=== PATIENT | female | born 1940 | race Caucasian/White ===

== ENCOUNTER → 2016-10-14 | Outpatient (CLI) | payer OTHER | LOC: MOB LAB 14:37 | PROVIDERS: ATTEND Family Medicine | DX: R30.0 Dysuria (principal) | CPT/HCPCS: 81002; 87088; 99214; J3420 ==

== ENCOUNTER → 2016-10-15 | Outpatient (CLI) | payer OTHER ==
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
[2016-10-16 13:38] LABS: SS-A/RO ANTIBODY IGG <0.2 U (()); SS-B/LA ANTIBODY IGG 0.2 U (())
== END ==
LOC: MOB LAB 09:34
PROVIDERS: ATTEND Family Medicine
DX: H04.123 Dry eye syndrome of bilateral lacrimal glands (principal); R53.83 Other fatigue; R07.89 Other chest pain; W00.0XXA Fall on same level due to ice and snow, initial encounter; Y92.481 Parking lot as the place of occurrence of the external cause
CPT/HCPCS: 12041; 36415; 71101; 85652; 86235; 90715; 99213

== ENCOUNTER → 2016-10-17 | Outpatient (CLI) | payer OTHER | LOC: MMPC 09:00 | PROVIDERS: ATTEND Family Medicine | DX: Z51.89 Encounter for other specified aftercare (principal); S20.212D Contusion of left front wall of thorax, subsequent encounter; W18.09XA Striking against other object with subsequent fall, initial encounter | CPT/HCPCS: 99213; G0463 ==

== ENCOUNTER → 2016-11-22 | Outpatient (CLI) | payer OTHER ==
--- NOTE | 2016-11-22 13:30 | EKG ---
[address] [address] Measurements Intervals [place] Rate: 54 P: 73 GA: 195 QRS: 70 QRSD: 93 T: 61 QT: 437 QTc: 424 Interpretive Statements SINUS BRADYCARDIA Compared to ECG 09/17/2016 15:41:35 T-wave abnormality no longer present Electronically Signed On 11-22-16 16:09:06 [facility] by Tristin Ortez [id number]
== END ==
LOC: EKG 09:00
PROVIDERS: ATTEND Family Medicine
DX: M25.562 Pain in left knee (principal); E78.00 Pure hypercholesterolemia, unspecified; R00.1 Bradycardia, unspecified
CPT/HCPCS: 93005; 93010

== ENCOUNTER → 2016-11-22 | Outpatient (CLI) | payer OTHER ==
[2016-11-22 13:03] LABS: HEMATOCRIT 41.5 % (37.0-47.0); HEMOGLOBIN 13.9 g/dL (12.0-16.0); MEAN CORPUSCULAR HEMOGLOBIN 31.8 PG (27-31); MEAN CORPUSCULAR HGB CONC 33.5 g/dL (33-37); MEAN PLATELET VOLUME 9.6 FL (7.4-12.2); RDW COEFFICIENT OF VARIATION 13.6 % (11.5-14.5); RED BLOOD COUNT 4.37 10^6/uL (4.20-5.40); WHITE BLOOD COUNT 5.26 10^3/uL (4.8-10.8)
[2016-11-22 13:35] LABS: BILIRUBIN,TOTAL 0.6 mg/dL (0.3-1.2); BUN/CREATININE RATIO 38.33 (6-20); CALCIUM 9.6 mg/dL (8.7-10.7); CREATININE 0.6 mg/dL (0.50-1.20); POTASSIUM 3.9 meq/L (3.8-5.2); TOTAL PROTEIN 7.2 g/dL (6.1-8.0)
[2016-11-22 13:36] LABS: BILIRUBIN,URINE NEGATIVE (NEG); CLARITY,URINE CLEAR (CLEAR); GLUCOSE, URINE (UA) NEGATIVE (NEG); LEUKOCYTE ESTERASE ,URINE NEGATIVE (NEG); NITRATE,URINE NEGATIVE (NEG); OCCULT BLOOD,URINE NEGATIVE (NEG); PH,URINE 6.5 (5.0-8.5); PROTEIN,URINE NEGATIVE (NEG); UROBILINOGEN,URINE 0.2 mg/dL (0.2)
[2016-11-22 13:50] LABS: URINE SAMPLE TYPE CLEAN CATCH URINE
[2016-11-22 13:51] LABS: RENAL EPITHELIAL CELLS,URINE RARE; SQUAMOUS EPITHELIAL CELL,UR RARE; WBC,URINE 0-3
== END ==
LOC: LAB 12:37
PROVIDERS: ATTEND Family Medicine
DX: M25.562 Pain in left knee (principal); E53.8 Deficiency of other specified B group vitamins
CPT/HCPCS: 36415; 80053; 81001; 85027; 86850; 86900; 86901; 87641; 99213; G0463; J3420

== ENCOUNTER → 2016-12-16 | Outpatient (CLI) | payer OTHER ==
--- NOTE | 2016-12-16 12:09 | DI ---
VENOUS DOPPLER ULTRASOUND OF THE LEFT LOWER EXTREMITY, 12/16/2016 11:03 AM: Clinical History: Left leg pain. Previous Exam: None. Technique: 2D real-time imaging is supplemented with color Doppler ultrasound. Compression and augmen tation maneuvers were performed. The deep venous system from the groin to the popliteal fossa is norm al. The greater saphenous vein is normal. Reading: Negative venous Doppler ultrasound of the left lower extremity.
== END ==
LOC: US 10:59
PROVIDERS: ATTEND Orthopaedic Surgery
DX: M79.605 Pain in left leg (principal)
CPT/HCPCS: 93971

== ENCOUNTER → 2016-12-20 | Outpatient (CLI) | payer OTHER | LOC: MMPC 09:00 | PROVIDERS: ATTEND Family Medicine | DX: E53.8 Deficiency of other specified B group vitamins (principal); E55.9 Vitamin D deficiency, unspecified | CPT/HCPCS: 99212; G0463; J3420 ==

== ENCOUNTER → 2017-02-11 | Outpatient (CLI) | payer OTHER | LOC: MMPC 10:00 | PROVIDERS: ATTEND Specialist | DX: R03.0 Elevated blood-pressure reading, without diagnosis of hypertension (principal); I48.0 Paroxysmal atrial fibrillation; Z96.652 Presence of left artificial knee joint | CPT/HCPCS: 99213; G0463 ==

== ENCOUNTER → 2017-03-10 | Outpatient (CLI) | payer OTHER | LOC: MOB LAB 15:17 | PROVIDERS: ATTEND Family Medicine | DX: R30.0 Dysuria (principal); M54.6 Pain in thoracic spine; R10.84 Generalized abdominal pain; I10 Essential (primary) hypertension; E53.8 Deficiency of other specified B group vitamins; R82.99 Other abnormal findings in urine | CPT/HCPCS: 81002; 87077; 87088; 87186 ×2; 99214; G0463; J3420 ==

== ENCOUNTER → 2017-04-09 | Outpatient (CLI) | payer OTHER ==
[2017-04-09 15:53] LABS: BASOPHILS # (AUTO) 0.02 10*3/UL; BASOPHILS % (AUTO) 0.4 % (0-1); EOSINOPHILS # (AUTO) 0.16 10*3/UL; EOSINOPHILS % (AUTO) 2.9 % (0-8); HEMATOCRIT 41.9 % (37.0-47.0); HEMOGLOBIN 13.7 g/dL (12.0-16.0); LYMPHOCYTES # (AUTO) 0.89 10*3/uL; MEAN CORPUSCULAR HEMOGLOBIN 30.2 PG (27-31); MEAN CORPUSCULAR HGB CONC 32.7 g/dL (33-37); MEAN CORPUSCULAR VOLUME 92.5 FL (81-99); MONOCYTES # (AUTO) 0.51 10*3/UL (0.3-0.8); MONOCYTES % (AUTO) 9.3 % (5-15); NEUTROPHILS # (AUTO) 3.93 10*3/UL; NEUTROPHILS % (AUTO) 71.2 % (50-80); RED BLOOD COUNT 4.53 10^6/uL (4.20-5.40)
[2017-04-09 15:57] LABS: PLATELET MORPHOLOGY COMMENT NORMAL MORPHOLOGY (NORM); RBC MORPHOLOGY COMMENT NORMAL MORPHOLOGY (NORM); WBC MORPHOLOGY COMMENT NORMAL MORPHOLOGY (NORM)
[2017-04-09 16:05] LABS: CALCIUM 9.6 mg/dL (8.7-10.7); CHOL/HDL RATIO 3.05 RATIO (0-4.0); LDL CHOLESTEROL,CALCULATED 120.2 mg/dL; MAGNESIUM 1.7 mg/dL (1.6-2.4); SERUM ALBUMIN 4.2 g/dL (3.5-4.8)
[2017-04-09 16:14] LABS: HEMOGLOBIN A1C 5.52 % (4.2-6.0)
[2017-04-09 16:19] LABS: FREE T4 (FREE THYROXINE) 1.01 ng/dL (0.93-1.71)
== END ==
LOC: MOB LAB 14:08
PROVIDERS: ATTEND Family Medicine
DX: I10 Essential (primary) hypertension (principal); E55.9 Vitamin D deficiency, unspecified; E78.00 Pure hypercholesterolemia, unspecified; K21.9 Gastro-esophageal reflux disease without esophagitis; R53.83 Other fatigue; R41.3 Other amnesia; R60.9 Edema, unspecified; R94.6 Abnormal results of thyroid function studies; R30.0 Dysuria; R82.99 Other abnormal findings in urine; Z23 Encounter for immunization
CPT/HCPCS: 36415; 80053; 80061; 81002; 82306; 83036; 83735; 84439; 84443; 84480; 84550; 85025; 87088; 90715; 99214; G0463

== ENCOUNTER 2017-10-27 15:53 | Inpatient (IN) ==
[2017-10-27] MEDS ORDERED: ONDANSETRON 4 MG/2 ML VIAL IVP ONE (16:11)
[2017-10-27] MEDS ORDERED: Sodium Chloride 0.9% 1,000 ML PRIMARY IV ONE (16:11)
[2017-10-27] MEDS ORDERED: MECLIZINE 25 MG CHEWABLE TABLET PO ONE (16:11)
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
[2017-10-27 16:14] LABS: BASOPHILS # (AUTO) 0.02 10*3/UL; BASOPHILS % (AUTO) 0.3 % (0-1); EOSINOPHILS % (AUTO) 2.7 % (0-8); Hematocrit [HCT] 42.6 % (37.0-47.0); Hemoglobin [HGB] 14.5 g/dL (12.0-16.0); LYMPHOCYTES # (AUTO) 1.17 10*3/uL; MEAN CORPUSCULAR HEMOGLOBIN 32.4 PG (27-31); MEAN CORPUSCULAR VOLUME 95.1 FL (81-99); MEAN PLATELET VOLUME 9.8 FL (7.4-12.2); MONOCYTES # (AUTO) 0.64 10*3/UL (0.3-0.8); MONOCYTES % (AUTO) 8.7 % (5-15); NEUTROPHILS # (AUTO) 5.27 10*3/UL; RED BLOOD COUNT 4.48 10^6/uL (4.20-5.40)
[2017-10-27 16:23] LABS: PLATELET MORPHOLOGY COMMENT NORMAL MORPHOLOGY (NORM); RBC MORPHOLOGY COMMENT NORMAL MORPHOLOGY (NORM); WBC MORPHOLOGY COMMENT NORMAL MORPHOLOGY (NORM)
[2017-10-27 16:24] LABS: CLARITY,URINE CLEAR (CLEAR); COLOR,URINE YELLOW (Y); PH,URINE 5.5 (5.0-8.5); PROTEIN,URINE NEGATIVE (NEG); URINE SAMPLE TYPE VOIDED SPECIMEN
[2017-10-27 16:25] LABS: BILIRUBIN,URINE NEGATIVE (NEG); GLUCOSE, URINE (UA) NEGATIVE (NEG); OCCULT BLOOD,URINE TRACE (NEG); UROBILINOGEN,URINE 0.2 EU/dL (0.2)
[2017-10-27 16:26] LABS: BLOOD UREA NITROGEN 22 mg/dL (7-22); BUN/CREATININE RATIO 36.66 (6-20); RBC,URINE 0 /hpf; SERUM ALBUMIN 4.2 g/dL (3.5-4.8); SQUAMOUS EPITHELIAL CELL,UR MODERATE; WBC,URINE 0-2
--- NOTE | 2017-10-27 16:44 | DI ---
MRI Brain WO Contrast,10/27/2017 4:11 PM: Clinical History: Left-sided weakness Previous Exam: None at this facility. Findings: Multiplanar MR images are obtained through the brain without contrast, and demonstrate diffuse age-re lated volume loss. There are multiple scattered areas of increased FLAIR and T2 signal throughout the periventricular and subcortical white matter. Intraorbital structures and paranasal sinuses are unremarkable as well. There is an area of curvilinear restricted diffusion in the right periventricular white matter just a spring the thalamus extending into the right internal capsule. There is no hemorrhage or midline shift. Midline structures are unremarkable. There is no evidence of Chiari malformation. The sella and parasellar region is unremarkable. Visualized portions of the cli vus and the upper cervical spine are also unremarkable. Impression: 1. Ischemia involving the right periventricular white matter just superior to the thalamus with porti ons extending into the right posterior limb of the internal capsule. 2. Diffuse age-related volume loss and multiple areas of small vessel ischemic change.
--- NOTE | 2017-10-27 17:54 | EKG ---
[address] [address] Measurements Intervals [place] Rate: 62 P: 76 [place]: 198 QRS: 80 QRSD: 89 T: 48 QT: 422 QTc: 427 Interpretive Statements SINUS RHYTHM MODERATE ST DEPRESSION [0.05+ mV ST DEPRESSION] Compared to ECG 06/24/2017 14:43:09 No significant changes Electronically Signed On 10-28-17 08:20:39 [facility] by Bulmaro Funez MD [id number]
[2017-10-27] MEDS ORDERED: ESTRADIOL VAGINAL VAGINAL SCH (19:22)
[2017-10-27] MEDS ORDERED: LIDOCAINE W/ SODIUM BICARB 0.5 ML SYR SUBD PRN (19:22)
[2017-10-27] MEDS ORDERED: NORMAL SALINE 10 ML SYRINGE FLUSH IVP PRN (19:22)
--- NOTE | 2017-10-27 21:10 | PDOC ---
HPI - History of Present Illness Date of Service: 10/27/17 Time of Service: 21:05 Chief Complaint: Left leg weakness History of Present Illness: This very pleasant 77-year-old female with underlying history of stable coronary artery disease, hypertension, and hypercholesterolemia, as well as paroxysmal atrial fibrillation, who presents with complaints of left leg weakness. Overall it has gotten better from when it initially started on either Friday morning or Friday morning. Apparently, prior to the leg feeling weak, the patient felt dizzy and lightheaded and her blood pressure was in the 90s systolic. It is not clear, but the patient may have doubled up on her blood pressure medications and taken an x-ray dose accidentally. She states that the symptoms of dizziness and lightheadedness are gone, she never had any chest pain, she's not had any fever or chills. She's never had a stroke before. The left leg weakness persisted and she came in for evaluation today and an MRI scan showed a right sided stroke. It was in the thalamus is an internal capsule region. I spoke with neurology in [place], to review what could potentially be the mechanism in case this could be an in situ versus embolic stroke, and it was their feeling that most likely this was a teacher fibrillation related, but recommendations were for continued evaluation of the carotid artery which we have planned for tomorrow. The patient was on a baby aspirin prior to the hospital stay. She's been on Coumadin in the past but is very erratic in terms of controlling very difficult that [place], [place]. There were no other exacerbating factors. She does not smoke. She does not have diabetes. She has had 6 weeks of left upper extremity weakness that she attributed to arthritis, but that did not seem to be any worse with her leg weakness. Past Medical History Medical History: 1. Coronary artery disease, a symptomatically. 2. Hypertension. 3. Hypercholesterolemia. 4. Paroxysmal atrial fibrillation. 5. Osteoarthritis Surgical History: 1. Cholecystectomy. 2. Bilateral hip surgeries. 3. Left total knee replacement. 4. Tonsillectomy and adenoidectomy. 5. Appendectomy Pertinent Family History: Significant for hypercholesterolemia in her mother. But her mother of old age at 91 Past Social History: Does not smoke or drink. . Has 2 children described as healthy. Lives on [place] ranch outside of [place], [place]. Tobacco Use: Never Smoker In the Past 12 Months, Have Used or Abuse Any of the Following Substance: None Alcohol Use: None Medication / Allergies Home Medications: Home Medications Medication Instructions Recorded Confirmed Type Calcium Carbonate/Vitamin D3 1 ea PO PRN 04/18/11 10/27/17 History [Caltrate 600 W-D Tablet] Sotalol HCl [Sotalol] 80 mg ORAL BID tab 04/18/11 10/27/17 History [place]-3 Fatty Acids [Fish Oil] 500 mg PO DAILY 05/26/11 10/27/17 History Psyllium Husk (with Sugar) 798 gm PO DAILY 05/26/11 10/27/17 History [Metamucil Powder] Cyclosporine [Restasis] 1 drp OP BID #1 drp 12/23/12 10/27/17 History Latanoprost [Xalatan] 1 drp OP DAILY #1 drp 12/23/12 10/27/17 History Cyanocobalamin Inj [Vitamin B-12 1,000 mcg IM MONTHLY #1 vial 02/22/14 10/27/17 History Inj] Cholecalciferol (Vitamin D3) 2,000 unit PO QD #90 cap 01/31/15 10/27/17 History [Vitamin D3] Estradiol Vaginal Cream 0.01% 1 applic VAGINAL ASDIR #1 tube 04/24/17 10/27/17 Rx [Estrace Vaginal Cream 0.01%] amlodipine 5 mg tablet 5 mg PO QDAY #90 tab 08/22/17 10/27/17 Rx mirtazapine 15 mg tablet 15 mg PO QHS 30 Days #30 tab 09/12/17 10/27/17 Rx ciprofloxacin 250 mg tablet 250 mg PO BID #10 tab 09/19/17 10/27/17 Rx Allergies/Adverse Reactions: Allergies 3 Allergy/AdvReac Type Severity Reaction Status Date / Time nitrofurantoin Allergy NOT Verified 10/27/17 20:05 macrocrystalline APPLICABLE [From Macrodantin] Sulfa (Sulfonamide AdvReac Severe GI upset Verified 10/27/17 20:05 Antibiotics) clindamycin HCl AdvReac nausea Verified 10/27/17 20:05 [From Cleocin] clindamycin palmitate HCl AdvReac nausea Verified 10/27/17 20:05 [From Cleocin] clindamycin phosphate AdvReac nausea Verified 10/27/17 20:05 [From Cleocin] novacaine AdvReac Intermediate Pt starts Uncoded 10/27/17 20:05 crying Review of Systems - Constitutional Constitutional: REPORTS: Fatigue (The fatigue has been present since at least the knee replacement back in November 2016) - Respiratory Respiratory: REPORTS: Negative System Review - Cardiovascular Cardiovascular: REPORTS: Negative System Review - Gastrointestinal Gastrointestinal / Abdominal: REPORTS: Negative System Review - Genitourinary Genitourinary: REPORTS: Other (Gets frequent urinary tract infections) - Musculoskeletal Musculoskeletal: REPORTS: Other (Osteo-Arthritis, left thumb, shoulder region on the left) - Neurological Neurologic: REPORTS: See HPI - Psychiatric Psychiatric: REPORTS: Negative System Review Exam - Vitals Vital Signs: Vital Signs Temperature 97.8 F Temperature Source Temporal Artery Scan Pulse Rate 62 Respiratory Rate 18 Blood Pressure 126/73 Pulse Ox 96 Height 5 ft 5 in Weight 130 lb - General General Appearance: No Acute Distress, Cooperative - Head Head Exam: Normal Inspection, Normocephalic, Atraumatic - Eye Eye Exam: POSITIVE: No Scleral Icterus - ENT ENT Exam: POSITIVE: Mucous Membranes Moist - Neck Neck Exam: Normal Inspection, No Tenderness, No Lymphadenopathy, No Thyromegaly - Respiratory Respiratory Exam: POSITIVE: Clear to Auscultation - Bilaterally, Breathing Non Labored, Normal to Percussion and Palpation - Cardiovascular Cardiovascular Exam: POSITIVE: RRR, No Murmur, No Clicks, No Gallops, No Rubs, No JVD Additional Cardiovascular Details: No carotid bruits - GI/Abdominal GI/Abdominal Exam: POSITIVE: Normal Bowel Sounds, Non Tender, Non Distended, Soft - Rectal Rectal Exam: POSITIVE: Deferred - External Exam: POSITIVE: Deferred Exam: POSITIVE: Deferred - Extremities Extremities Exam: POSITIVE: No Clubbing Present, No Edema Present, No Cyanosis Present - Back Back Exam: POSITIVE: No CVA Tenderness - Neurological Neurological Exam: POSITIVE: Alert, Oriented x 3, No Facial Droop, Speech Intact / Clear Additional Neurological Exam Details: Slight weakness in the left lower extremity. Smile is symmetric. Speech is intact and clear. - Psychiatric Psychiatric Exam: POSITIVE: Normal Affect, Normal Mood Results - Labs CBC and BMP: 10/27/17 16:11 10/27/17 16:11 Additional Lab Results: Laboratory Results 10/27/17 10/27/17 10/27/17 Range/Units 16:11 16:11 16:11 WBC 7.32 (4.8-10.8) 10^3/uL RBC 4.48 (4.20-5.40) 10^6/uL Hgb 14.5 (12.0-16.0) g/dL Hct 42.6 (37.0-47.0) % MCV 95.1 (81-99) FL MCH 32.4 H (27-31) PG MCHC 34.0 (33-37) g/dL RDW Std Deviation 47.0 (39-50) fL RDW Coeff of Greg 13.9 (11.5-14.5) % Plt Count 199 (140-350) 10*3/uL MPV 9.8 (7.4-12.2) FL Immature Gran % (Auto) 0.3 (0-5) % Neut % (Auto) 72.0 (50-80) % Lymph % (Auto) 16.0 (10-50) % [place] % (Auto) 8.7 (5-15) % Eos % (Auto) 2.7 (0-8) % Baso % (Auto) 0.3 (0-1) % Immature Gran # (Auto) 0.02 10*3/UL Neut # (Auto) 5.27 10*3/UL Lymph # (Auto) 1.17 10*3/uL [place] # (Auto) 0.64 (0.3-0.8) 10*3/UL Eos # (Auto) 0.20 10*3/UL Baso # (Auto) 0.02 10*3/UL WBC Morphology Comment Normal morphology (NORM) Plt Morphology Comment Normal morphology (NORM) RBC Morph Comment Normal morphology (NORM) PT 11.1 (9.7-11.4) secs INR 1.05 (0.00-5.90) N/A Sodium (135-145) meq/L Potassium (3.8-5.2) meq/L Chloride (98-112) meq/L Carbon Dioxide (23-33) meq/L Anion Gap (5-20) BUN (7-22) mg/dL Creatinine (0.50-1.20) mg/dL BUN/Creatinine Ratio (6-20) Glucose (78-110) mg/dL Calculated Osmolality (267-292) mOsm/kg Calcium (8.7-10.7) mg/dL Total Bilirubin (0.3-1.2) mg/dL AST (8-39) IU/L ALT (9-52) IU/L Alkaline Phosphatase (38-126) IU/L C-Reactive Protein (0.0-0.9) mg/dL Total Protein (6.1-8.0) g/dL Albumin (3.5-4.8) g/dL Globulin (2.50-4.10) g/dL Albumin/Globulin Ratio (1.3-2.0) mg/g TSH (0.2700-4.2000) uIU/mL Ur Collection Type Voided specimen Urine Color Yellow (Y) Urine Clarity Clear (CLEAR) Urine pH 5.5 (5.0-8.5) Ur Specific [place] 1.025 (1.005-1.030) Urine Protein Negative (NEG) mg/dl Urine Glucose (UA) Negative (NEG) mg/dL Urine Ketones 15 (NEG) Urine Occult Blood Trace H (NEG) Urine Nitrate Negative (NEG) Urine Bilirubin Negative (NEG) Urine Urobilinogen 0.2 (0.2) EU/dL Ur Leukocyte Esterase Negative (NEG) Urine RBC 0 (NONE) /hpf Urine WBC 0-2 (NONE) Ur Squamous Epith Cells Moderate (NONE) Ur Renal Epithelial Cell None (NONE) Urine Crystals None Urine Bacteria None (NONE) Urine Casts None (NONE) Urine Mucus Many (NONE) Urine Trichomonas None (NONE) Urine Yeast None (NONE) Ur Culture Indicated? Culture not set 10/27/17 10/27/17 Range/Units 16:11 16:11 WBC (4.8-10.8) 10^3/uL RBC (4.20-5.40) 10^6/uL Hgb (12.0-16.0) g/dL Hct (37.0-47.0) % MCV (81-99) FL MCH (27-31) PG MCHC (33-37) g/dL RDW Std Deviation (39-50) fL RDW Coeff of Greg (11.5-14.5) % Plt Count (140-350) 10*3/uL MPV (7.4-12.2) FL Immature Gran % (Auto) (0-5) % Neut % (Auto) (50-80) % Lymph % (Auto) (10-50) % [place] % (Auto) (5-15) % Eos % (Auto) (0-8) % Baso % (Auto) (0-1) % Immature Gran # (Auto) 10*3/UL Neut # (Auto) 10*3/UL Lymph # (Auto) 10*3/uL [place] # (Auto) (0.3-0.8) 10*3/UL Eos # (Auto) 10*3/UL Baso # (Auto) 10*3/UL WBC Morphology Comment (NORM) Plt Morphology Comment (NORM) RBC Morph Comment (NORM) PT (9.7-11.4) secs INR (0.00-5.90) N/A Sodium 141 (135-145) meq/L Potassium 4.2 (3.8-5.2) meq/L Chloride 105 (98-112) meq/L Carbon Dioxide 23 (23-33) meq/L Anion Gap 13 (5-20) BUN 22 (7-22) mg/dL Creatinine 0.6 (0.50-1.20) mg/dL BUN/Creatinine Ratio 36.66 H (6-20) Glucose 154 H (78-110) mg/dL Calculated Osmolality 297.0 H (267-292) mOsm/kg Calcium 10.0 (8.7-10.7) mg/dL Total Bilirubin 0.9 (0.3-1.2) mg/dL AST 31 (8-39) IU/L ALT 29 (9-52) IU/L Alkaline Phosphatase 57 (38-126) IU/L C-Reactive Protein 0.6 (0.0-0.9) mg/dL Total Protein 7.6 (6.1-8.0) g/dL Albumin 4.2 (3.5-4.8) g/dL Globulin 3.3 (2.50-4.10) g/dL Albumin/Globulin Ratio 1.20 L (1.3-2.0) mg/g TSH 1.09 (0.2700-4.2000) uIU/mL Ur Collection Type Urine Color (Y) Urine Clarity (CLEAR) Urine pH (5.0-8.5) Ur Specific [place] (1.005-1.030) Urine Protein (NEG) mg/dl Urine Glucose (UA) (NEG) mg/dL Urine Ketones (NEG) Urine Occult Blood (NEG) Urine Nitrate (NEG) Urine Bilirubin (NEG) Urine Urobilinogen (0.2) EU/dL Ur Leukocyte Esterase (NEG) Urine RBC (NONE) /hpf Urine WBC (NONE) Ur Squamous Epith Cells (NONE) Ur Renal Epithelial Cell (NONE) Urine Crystals Urine Bacteria (NONE) Urine Casts (NONE) Urine Mucus (NONE) Urine Trichomonas (NONE) Urine Yeast (NONE) Ur Culture Indicated? - EKG Data -: EKG Interpreted by Me Rate: Normal EKG Shows Normal: Sinus Rhythm - Imaging Status: Report Reviewed by Me (I reviewed the MRI report from the radiologist.) Assessment and Plan - Patient Problems (1) Acute embolic stroke Current Visit: Yes Status: Acute Code(s): I63.9 - Cerebral infarction, unspecified (2) Paroxysmal atrial fibrillation Current Visit: Yes Status: Acute Code(s): I48.0 - Paroxysmal atrial fibrillation (3) Hypertension Current Visit: Yes Status: Acute Code(s): I10 - Essential (primary) hypertension Qualifiers: Hypertension type: essential hypertension Qualified Code(s): I10 - Essential (primary) hypertension (4) Coronary artery disease Current Visit: Yes Status: Acute Code(s): I25.10 - Atherosclerotic heart disease of [place] coronary artery without angina pectoris Qualifiers: Coronary Disease-Associated Artery/Lesion type: [place] artery [place] vs. transplanted heart: [place] heart Associated angina: without angina Qualified Code(s): I25.10 - Atherosclerotic heart disease of [place] coronary artery without angina pectoris (5) Hypercholesterolemia Current Visit: Yes Status: Acute Code(s): E78.00 - Pure hypercholesterolemia , unspecified - Assessment / Plan Additional Assessment/Plan Details: Given the location of the stroke on MRI scan, I push the films up to [place], and spoke with the neurologist there to discuss whether this could be embolic or in situ ischemia or ischemia from a carotid artery. Overall, it was recommended and suggested that it was most likely embolic from atrial fibrillation. It did not appear consistent with watershed stroke. The recommendation was to do anticoagulation and continue on aspirin. The patient and I spoke in depth regarding Coumadin versus Xarelto versus Eliquis, including all risks and benefits, risks being bleeding complications and possible pitfalls of not being able to reverse bleeding with antidotes, and benefits cream treatment of stroke prevention, lack of drug interactions, and ease of therapy in terms of lab monitoring. Overall, given that the patient lives out of town, it would be very difficult to monitor Coumadin and it was erratic on one of her prior hip replacements as it was. She feels Eliquis would be the best choice for her. I would agree with this. Given that she is almost 78 years old, and is less than 60 kg at 59 kg, we will dose at 2.5 mg twice a day. Continue baby aspirin. Check lipid panel tomorrow. I did discuss statin therapy, risks, benefits, but given intolerance of statins, it may be best to not do this at this time. I will let the patient think about that. PT and OT. Carotid artery and cerebral artery workup with MRA of head and neck and review to see if there is any blockages that might indicate other interventions to help prevent stroke. Patient is full code I discussed with her and her and her son present in room. I'm going to go ahead and treat blood pressure with home medications. All questions were answered and everyone agreed with the plan above.
[2017-10-27] MEDS: Mirtazapine Tab 15 MG TAB PO SCH (21:50)
[2017-10-27] MEDS: Sotalol Tab 80 MG TAB PO SCH (21:50)
[2017-10-27] MEDS: Apixaban Tab 2.5 MG TABLET PO SCH (21:50)
[2017-10-27] MEDS: Non-Formulary Drug (Cyclosporine [Restasis] 1 DRP) OP SCH (23:06)
[2017-10-28 06:52] LABS: CHOL/HDL RATIO 3.82 RATIO (0-4.0)
[2017-10-28] MEDS: Sotalol Tab 80 MG TAB PO SCH ×2 (08:14→20:18)
[2017-10-28] MEDS: AmLODIPine Tab 5 MG TABLET PO SCH (08:15)
[2017-10-28] MEDS: Apixaban Tab 2.5 MG TABLET PO SCH ×2 (08:15→20:18)
[2017-10-28] MEDS: PSYLLIUM SEED 1 EACH PACKET PO SCH (08:15)
[2017-10-28] MEDS: ASPIRIN EC 81 MG TABLET PO SCH (08:15)
[2017-10-28] MEDS: Calcium/Vit D 600mg/400u Tab 1 TAB TABLET PO SCH (08:15)
[2017-10-28] MEDS ORDERED: ASPIRIN 325 MG TABLET PO SCH ×2 (09:00)
[2017-10-28] MEDS ORDERED: LATANOPROST 0.005% 2.5 ML EYE DROPS EACH EYE SCH (09:00)
[2017-10-28] MEDS ORDERED: ENOXAPARIN SODIUM 40 MG/0.4 ML SYRINGE SUBCUT SCH (09:00)
[2017-10-28] MEDS ORDERED: OMEGA PO SCH (09:00)
[2017-10-28] MEDS ORDERED: FATTY ACIDS PO SCH (09:00)
[2017-10-28] MEDS: Non-Formulary Drug (Cyclosporine [Restasis] 1 DRP) OP SCH ×2 (11:32→22:23)
--- NOTE | 2017-10-28 12:14 | DI ---
MRI MRA Head WO Contrast,10/28/2017 7:00 AM: Clinical History: Ischemic stroke. Previous Exam: None at this facility. Findings: 3-D [id number] images are obtained through the [place], and demonstrate a normal anterio r cerebral arteries. The anterior communicating artery is within normal limits. The middle cerebral arteries are normal. The posterior cerebral arteries are also normal. The distal vertebral arteries are within normal limits and the basilar artery is unremarkable. The po sterior communicating arteries are not well evaluated on this exam. There is no evidence of aneurysmal dilation. Impression: Normal MRA [place]
--- NOTE | 2017-10-28 15:02 | DI ---
MRI MRA Neck WO Contrast,10/28/2017 7:00 AM: Clinical History: Ischemic stroke Previous Exam: None at this facility. Findings: Multiplanar MR images are obtained through the neck following a 2-D [id number] protocol focusing on the carotids. There is mild loss of signal within the carotid bulbs bilaterally without hemodynamically significant stenosis. The vertebral arteries demonstrate normal course and caliber. The internal carotid arteries are normal in course and caliber as well. There is no evidence of dissection. The aortic arch and the origins of the major vessels are unremark able. Impression: No significant stenosis.
--- NOTE | 2017-10-28 15:49 | PTI REPORT ---
Thank you for the referral of Rachel Joy. She was seen on 10/28/17 for an inpatient evaluation secondary to a CVA. SUBJECTIVE: The patient is a 77-year-old female who was referred by Dr. Campbell secondary to a diagnosis of a CVA. She was admitted last night and she has been in for several special tests this morning. We did get to her late this morning. The patient has a past history of a total knee, total hip, and a glut/med tear on the right. The patient has always ambulated with a cane secondary to her orthopedic problems. 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 The patient states she has had some left shoulder pain for about a year and a half now. She probably has a bad rotator cuff tear that we worked up about six months ago; the patient has elected not do do any surgical procedures about it yet. She states that the pain is still there; she is having a little more difficulty moving her arm. Full shoulder testing was complicated by that rotator cuff tear. In visiting with the patient's , they have two or three steps to get in and out of her house. The patient states that she did fall at home prior to her hospitalization. PAST MEDICAL HISTORY: Past medical history can be found in the patient's medical record. OBJECTIVE FINDINGS: General observations: The patient was alert and oriented x3. She has been a patient of ours in the past for the last 30 years and we know her well. Strength: The patient does demonstrate strength of 4/5 for elbow flexion, elbow extension, and hand and finger function, but it is not the same or equal to that of the right side. The patient is slower in speed of motions with special testing. Left lower extremity was again difficult to test compared to a normal side as we do not have one, but the therapist would rate her left hip strength at 3/5, quad strength at 3+/5, hamstring strength at 3+/5, and dorsiflexion at 3 /5. Transfers: With functional movement, the patient is able to come from a sit to a standing position independently. She does lean to the left. This is a new finding. Ambulation: Historically the patient has ambulated with a cane leaning to the right and a Trendelenburg to the right due to her hip. When she ambulates she does not clear her left toes as well as she does on the right side. When she turns to the left, she is having trouble losing her balance. Vision: We checked her vision; no hemianopsia is present. Balance: The patient demonstrates the ability to bend over and merchandise pickup/receiving associate objects off of the floor carefully with stand by assist. The therapist would give the patient a Whyte score of 32. She is a MODERATE risk for falling, especially with transitional movements on and off the toilet and in and out of bed. When she comes from standing to sitting position, she loses her balance and plops down rather quickly, indicating that she still has some weak quads and hamstrings on that side as well. ASSESSMENT: CVA with left sided weakness. Problem List: Patient is a MODERATE risk for falling Decreased balance Decreased gait Short-Term Goals: To be met by discharge from inpatient: Patient will be able to transfer from bed to stand with stand by assistance only. Patient will increase lower extremity strength to 4/5. Patient will be able to ambulate household distances with least restrictive assistive device. Long-Term Goals: To be met following discharge from inpatient: Patient will be able to return home per prior level of function. TREATMENT PLAN: Patient will be seen B.I.D during the week and one time per day over the weekend as an inpatient for lower extremity strengthening, transfers, ambulatory skills, ascending and descending stairs, and becoming independent with functional transfers into and out of the restroom and around the house. INITIAL TREATMENT: Treatment today consisted of the initial evaluation activities only. PATTI
--- NOTE | 2017-10-28 16:26 | OTI REPORT ---
Thank you for the referral of Rachel Joy. She was seen on 10/28/17 for an occupational therapy inpatient evaluation secondary to a CVA. SUBJECTIVE: The patient is a 77-year-old female who had a CVA/TIA. The patient has a history of a-fib, CHF, and hypertension. The patient also has a history of left shoulder problems, left wrist problems, and right hip difficulties. The patient [place] 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 The patient reports she has a bathtub/shower combination as well as a regular toilet. She may need adaptive equipment depending on her progress throughout. The patient reports that her left side seems weaker. She reports she did have a controlled fall to the left. The patient used a single point cane prior to admission to keep her balance. The patient's gluteus medius is not attached on the right side and this typically is her difficult area along with her back. Prior to admission the patient was independent with laundry, cooking, cleaning, and other tasks. PAST MEDICAL HISTORY: Past medical history can be found in the patient's medical record. OBJECTIVE FINDINGS: Bed mobility: The patient was able to come from supine to sit with increased time. She needed cues to use her left upper extremity to help get her to a sitting position. She needed assistance to back up to the bed and has difficulty moving her left lower extremity independently and safely in order to back up safely. Range of motion: Once in a seated position, the patient's active range of motion of bilateral upper extremities was assessed. Right upper extremity is all within functional limits. On the left upper extremity she was 0 to 80 degrees of active motion and she has a lot of pain with her shoulder. Elbow flexion/extension range of motion on the left is within normal limits. Wrist motion on the left is about 50%. Strength: Strength for right shoulder flexion was 4/5, abduction was 3+/5, elbow flexion/extension was 4/5, and wrist flexion/extension was 4+/5. Strength for left shoulder flexion was 2+/5, abduction was 2/5, elbow flexion/ extension was 3+/5, and wrist flexion/extension was 3+/5. Pain: The patient did pinpoint an area of pain at the CMC joint on the left wrist. Coordination: The patient was asked to flex and extend elbows in a fast motion. The left upper extremity has approximately 25% less speed than the right. She also has difficulty opening and closing the hand at faster speed on the left compared to the right. The patient was able to oppose her thumb to all four fingers. Transfers: The patient has some safety issues with transfers to the toilet. The therapist had the patient ambulate and transfer to the toilet. She needed min assist to keep her balance as she did slightly fall to the left against the wall. She was not able to maintain her balance by herself today, especially during turning and transfers. Activities of daily living: The patient was able to don and doff her sock while sitting edge of bed with increased time. She tends to not use her left upper extremity, but she states prior to this admission she did not want to use her left upper extremity very much secondary to pain. Swallow: The patient has good laryngeal elevation and did not demonstrate any external signs of aspiration. Vision: The patient demonstrated good visual tracking and did not demonstrate any visual neglect. ASSESSMENT: The patient is demonstrating left upper extremity difficulties; this is most likely due to he previous difficulties. The patient is demonstrating possible rotator cuff involvement on the left side; however, her reaction speed with her fingers and her elbow were definitely more of a decline in coordination and speed tasks. This could be secondary to the stroke. Problem List: Decreased functional transfers Decreased coordination on the left upper extremity Decreased safety awareness Short-Term Goals: To be met by discharge from inpatient: Patient will be able to obtain clothes from closet while maintaining balance and sit on surface to dress self independently. Patient will improve left upper extremity coordination and reaction speed to be comparable to the right side 2/3 times. Patient will be able to complete a shower transfer as well as a shower while sitting on chair while keeping balance. Patient will be able to complete toilet transfer as well as toilet hygiene independently. Patient will increase upper extremity strength to the elbow and wrist area on the left side to 4+/5. Long-Term Goals: To be met following discharge from inpatient: Patient will be discharged to home, demonstrating safety and independence with all functional transfers and functional ADLs. TREATMENT PLAN: Patient will be seen B.I.D during the week and one time per day over the weekend as an inpatient to address the above goals and objectives. INITIAL TREATMENT: Treatment today consisted of the initial evaluation followed by the patient functionally transferring to the bed and the toilet; the patient needed min assist and verbal cues in order to do so safely as she did demonstrate balance difficulties to the left. The patient completed dressing tasks and standing activities at the sink. PATTI
--- NOTE | 2017-10-28 16:34 | DI ---
US Up/Low Extremity Veins B/L,10/28/2017 12:14 PM: Clinical History: Calf pain. Previous Exam: None at this facility. Findings: Multiple grayscale and color Doppler sonographic images are obtained through the deep veins of both l ower extremities, and demonstrate complete coaptation upon graded compression. There is no echogenic thrombus. There is normal respiratory variation and nonmedication. Impression: No evidence of deep venous thrombosis.
--- NOTE | 2017-10-28 16:55 | PDOC(PROG) ---
Date and Time of Service: 10/28/2017, 1645 Interval History: No completes of chest pain or shortness breath. Thus far tolerating eliquis therapy. She is very apprehensive about going on cholesterol medication with her prior side effects from that. Complained of calf pain, ultrasounds pending. We reviewed MRI and MRA results of head and neck, and they are negative for carotid artery stenosis. She feels like the left leg is moving better today. Objective : Data - Labs CBC and BMP: 10/27/17 16:11 10/27/17 16:11 Additional Lab Results: 10/28/17 10/28/17 04:56 04:56 Mean Blood Glucose 113.80 Triglycerides 89 Cholesterol 180 LDL Cholesterol, Calc 115.200 VLDL Cholesterol 17 HDL Cholesterol 47 Cholesterol/HDL Ratio 3.82 Objective : Exam - General General Appearance: No Acute Distress, Cooperative Additional General Exam Details: Vital Signs - Last Taken Temperature 98.1 F 10/28/17 11:23 Pulse Rate 64 10/28/17 15:00 Respiratory Rate 17 10/28/17 11:23 Blood Pressure 158/75 10/28/17 11:23 Pulse Ox 91 10/28/17 11:23 - Eye Eye Exam: No Scleral Icterus - ENT ENT Exam: Mucous Membranes Moist - Respiratory Respiratory Exam: Clear to Auscultation - Bilaterally, Breathing Non Labored - Cardiovascular Cardiovascular Exam: RRR, No Murmur, No Clicks, No Gallops, No Rubs, No JVD - GI/Abdominal GI/Abdominal Exam: Normal Bowel Sounds, Non Tender, Non Distended, Soft - Extremities Extremities Exam: No Clubbing Present, No Edema Present, No Cyanosis Present Additional Extremities Exam Details: I could not really elicit a lot of calf tenderness although the patient did complain of this earlier - Neurological Neurological Exam: Alert, Oriented x 3, No Facial Droop, Speech Intact / Clear Additional Neurological Exam Details: Was getting Doppler ultrasound studies to look for DVTs, so I held off on muscle strength testing. Read through physical therapy notes. - Central Line Examination Central Line Present on Admission: No Assessment and Plan - Patient Problems (1) Acute embolic stroke Current Visit: Yes Status: Acute Code(s): I63.9 - Cerebral infarction, unspecified (2) Paroxysmal atrial fibrillation Current Visit: Yes Status: Acute Code(s): I48.0 - Paroxysmal atrial fibrillation (3) Hypertension Current Visit: Yes Status: Acute Code(s): I10 - Essential (primary) hypertension Qualifiers: Hypertension type: essential hypertension Qualified Code(s): I10 - Essential (primary) hypertension (4) Coronary artery disease Current Visit: Yes Status: Acute Code(s): I25.10 - Atherosclerotic heart disease of [place] coronary artery without angina pectoris Qualifiers: Coronary Disease-Associated Artery/Lesion type: [place] artery [place] vs. transplanted heart: [place] heart Associated angina: without angina Qualified Code(s): I25.10 - Atherosclerotic heart disease of [place] coronary artery without angina pectoris (5) Hypercholesterolemia Current Visit: Yes Status: Acute Code(s): E78.00 - Pure hypercholesterolemia , unspecified - Assessment / Plan Additional Assessment/Plan Details: ultrasound dopplers, check for DVT continue eliquis no change to BP meds or Afib medications will continue PT and OT--will have to develop a good outpatient plan as patient lives remotely on [facility] no cholesterol medications due to prior side effects.
--- NOTE | 2017-10-28 17:11 | PT.PROG ---
Progress Note Progress Note: S. Patient stated that she has had a busy day but she would like to do some therapy. O. Patient ambulated 175 feet to the therapy gym where she used the nu-step x10 minutes and 5 sit to stands then ambulated 175 feet back to her room. A. Patient tolerated therapy fair this afternoon. she is weak and has some balance deficits. She would continue to benefit from skilled therapy at this time. P. Continue POC.
--- NOTE | 2017-10-28 17:15 | OT.PROG ---
Progress Note Progress Note: S: pt stated that she wanted to do therapy. She was accompanied by her . O: pt was seen in her room in the pm. She completed LE dressing with min A and Ue dressing with MIn. Pt then completed toilet transfer with SBA for safety only. She transferred downstairs and completed proprioceptive input to L UE, cane with BUE's x10 and bicep curls x10. Pt returned to her room and was placed in chair as nursing was present completing vitals. A: pt displayed good activity tolerance by transferring all the way downstairs. Continue to progress post CVA. P: continue per POC.
[2017-10-28] MEDS: Mirtazapine Tab 15 MG TAB PO SCH (20:18)
[2017-10-28] MEDS: LATANOPROST 0.005% 2.5 ML EYE DROPS EACH EYE SCH (20:18)
[2017-10-28] MEDS: IBUPROFEN 400 MG TABLET PO PRN (21:48)
[2017-10-29] MEDS: Sotalol Tab 80 MG TAB PO SCH ×2 (08:47→20:20)
[2017-10-29] MEDS: PSYLLIUM SEED 1 EACH PACKET PO SCH (08:47)
[2017-10-29] MEDS: Apixaban Tab 2.5 MG TABLET PO SCH ×2 (08:47→20:21)
[2017-10-29] MEDS: Calcium/Vit D 600mg/400u Tab 1 TAB TABLET PO SCH (08:48)
[2017-10-29] MEDS: ASPIRIN EC 81 MG TABLET PO SCH (08:48)
[2017-10-29] MEDS: AmLODIPine Tab 5 MG TABLET PO SCH (08:48)
[2017-10-29] MEDS: Non-Formulary Drug (Cyclosporine [Restasis] 1 DRP) OP SCH ×2 (08:49→20:23)
--- NOTE | 2017-10-29 12:03 | OT.PROG ---
Progress Note Progress Note: S: pt stated she wants to do as much as she can in therapy. She reports that her left leg does drag some. O: pt was transferred down to therapy by PT. After PT finished up treatment, OT began UE strengthening. She completed shoulder press with 2# and 4# x15, RTB in rows, shoulder ext, bicep flex and IROT all x15 with BUE's. She then completed yellow putty activity for up to 5 min. She then transferred bike and participated for up to 20 min with Heat on UE. She transferred back to her room the entire way with no breaks and was left in chair with alarm on and call light within reach. A: pt does have some deficits on L side but her activity tolerance throughout transfers are good. Therapy would recommend to complete transfers with gait belt and CGA for safety. Pt is very motivated. P: continue per POC.
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
--- NOTE | 2017-10-29 16:01 | OT.PROG ---
Progress Note Progress Note: S: pt states she thinks she may go home this weekend. She hopes to be able to attend therapy in [place]. She did report back pain. O: pt was seen in her room in the p.m. She completed functional transfer approx 150 ft to therapy. She completed toilet transfer Ind when she arrived at therapy. She then completed 8 min on UE bike to increase activity tolerance. Pt transferred to EOB where she completed putty, rice, & clothpins. PT took over at this point. A: pt did drag her leg a little during transfers today but did not have any near falls. She struggled with some of the FM activities and function with hand. P: continue per POC.
--- NOTE | 2017-10-29 16:27 | PT.PROG ---
Progress Note Progress Note: S. Patient stated that she is feeling good this morning. O. patient ambulated 175 feet to the therapy gym where she used the nu-step x 12 minutes, then performed seated exercises in the form of; long arc quads, heel toe raises, marches, ball squeezes, resisted knee flexion, and sit to stands all x 10 bilaterally with 2#, Patient was left with OT for further therapy. A. patient tolerated therapy well this morning, she continues to have left sided weakness however was able to perform all exercises with no complaints of pain. Patient would continue to benefit from skilled therapy at this time to increase strength, endurance and mobility. P. continue POC.
--- NOTE | 2017-10-29 16:34 | PT.PROG ---
Progress Note Progress Note: S. Patient stated that she is having some pain in her low back this afternoon. O. Patient ambulated 175 feet to the therapy gym where she used the nu-step and the bicycle x 10 minutes each, then performed seated exercises in the form of; long arc quads, heel toe raises, marches, ball squeezes all x 10 with 2# weights. Patient ambulated 175 feet back to her room where she was left in her chair with alarm and call light. A. Patient was very fatigued and was struggling to make it back to her room after therapy, She was able to ambulate with CGA however required short standing rest breaks to recover. She would continue to benefit from skilled therapy to increase strength and mobility. P. Continue POC.
[2017-10-29] MEDS: IBUPROFEN 400 MG TABLET PO PRN (19:44)
[2017-10-29] MEDS: Mirtazapine Tab 15 MG TAB PO SCH (20:20)
[2017-10-29] MEDS: LATANOPROST 0.005% 2.5 ML EYE DROPS EACH EYE SCH (20:22)
[2017-10-30] MEDS: Apixaban Tab 2.5 MG TABLET PO SCH ×2 (09:16→20:15)
[2017-10-30] MEDS: ASPIRIN EC 81 MG TABLET PO SCH (09:16)
[2017-10-30] MEDS: PSYLLIUM SEED 1 EACH PACKET PO SCH (09:16)
[2017-10-30] MEDS: AmLODIPine Tab 5 MG TABLET PO SCH (09:16)
[2017-10-30] MEDS: Non-Formulary Drug (Cyclosporine [Restasis] 1 DRP) OP SCH ×2 (09:17→20:15)
[2017-10-30] MEDS: Sotalol Tab 80 MG TAB PO SCH ×2 (09:17→20:15)
[2017-10-30] MEDS: Calcium/Vit D 600mg/400u Tab 1 TAB TABLET PO SCH (09:17)
--- NOTE | 2017-10-30 15:45 | OT.PROG ---
Progress Note Progress Note: Occupational Therapy:45 min S: pt stated she was feeling well today and doing better but c/o soreness and pain in L UE elbow. O: pt competed functional ambulation from room to therapy gym with cane x 186' with CGA for safety. pt completed FM exercises of red digiflex L hand x20, red digiflex L individual fingers x20. pt completed FM exercises of coordination and endurance x5 min. pt completed L wrist exercises of flexion and extension with 1# x15, L radial and ulnar deviation with 1# x15, L pronation and supination with 1# x15. pt completed L IROT/EROT x20, L biceps curls x20 and L triceps extension x20. A: pt was an active participant in therapy today. pt was motivated to get well. P: continue POC
--- NOTE | 2017-10-30 16:44 | PDOC(PROG) ---
Date and Time of Service: 10/30/2017, 1640 Interval History: No chest pain, shortness breath, nausea or vomiting. Moving bowels okay. Left leg weakness is seemingly a little bit better, still drives but her toe occasionally. Doing well ambulating with therapy with cane, but still requiring therapy with work on transfers and not dragging foot. She wants to go home tomorrow afternoon after her therapy sessions. Objective : Data - Labs CBC and BMP: 10/27/17 16:11 10/27/17 16:11 Objective : Exam - General General Appearance: No Acute Distress, Cooperative Additional General Exam Details: Vital Signs (24 hrs) Temp Pulse Resp BP Pulse Ox 10/30/17 16:20 98.4 F 83 18 156/80 94 10/30/17 11:51 97.4 F 67 18 148/76 95 10/30/17 08:19 97.4 F 67 20 154/81 92 10/30/17 04:36 98.8 F 52 L 18 122/61 96 10/30/17 00:06 98.4 F 54 L 20 135/68 94 10/29/17 20:15 98.9 F 78 22 151/70 95 10/29/17 17:00 97.6 F 85 18 160/88 92 - Eye Eye Exam: No Scleral Icterus - ENT ENT Exam: Mucous Membranes Moist - Cardiovascular Cardiovascular Exam: RRR, No Murmur, No Clicks, No Gallops, No Rubs, No JVD - GI/Abdominal GI/Abdominal Exam: Normal Bowel Sounds, Non Tender, Non Distended, Soft - Extremities Extremities Exam: No Clubbing Present, No Edema Present, No Cyanosis Present - Neurological Neurological Exam: Alert, Oriented x 3, No Facial Droop, Speech Intact / Clear Additional Neurological Exam Details: Left leg only slightly weaker than right leg at this time. Assessment and Plan - Patient Problems (1) Acute embolic stroke Current Visit: Yes Status: Acute Code(s): I63.9 - Cerebral infarction, unspecified (2) Paroxysmal atrial fibrillation Current Visit: Yes Status: Acute Code(s): I48.0 - Paroxysmal atrial fibrillation (3) Hypertension Current Visit: Yes Status: Acute Code(s): I10 - Essential (primary) hypertension Qualifiers: Hypertension type: essential hypertension Qualified Code(s): I10 - Essential (primary) hypertension (4) Coronary artery disease Current Visit: Yes Status: Acute Code(s): I25.10 - Atherosclerotic heart disease of [place] coronary artery without angina pectoris Qualifiers: Coronary Disease-Associated Artery/Lesion type: [place] artery [place] vs. transplanted heart: [place] heart Associated angina: without angina Qualified Code(s): I25.10 - Atherosclerotic heart disease of [place] coronary artery without angina pectoris (5) Hypercholesterolemia Current Visit: Yes Status: Acute Code(s): E78.00 - Pure hypercholesterolemia , unspecified (6) Left leg weakness Current Visit: Yes Status: Acute Code(s): R29.898 - Other symptoms and signs involving the musculoskeletal system - Assessment / Plan Additional Assessment/Plan Details: Blood pressures noted, has several that her echo for close to 130/80 on at least 2 measurements. May need to add additional blood pressure medication, but given that she was hypotensive prior to all this as well, I think we need to be a little cautious about adding any new agent just yet. Continue eliquis. PT and OT. Hopefully discharge tomorrow post therapy. Patient is opting for an outpatient therapy plan. Follow-up with primary physician next week. Follow-up with cardiology next 6-8 weeks for atrial fibrillation management.
--- NOTE | 2017-10-30 16:55 | PT.PROG ---
Progress Note Progress Note: S. Patient stated that she is having some pain in her low back and hip pain. Patient reported that she wants to get better and go home. O. Patient ambulated 175 feet to the therapy gym where she used the nu-step and the bicycle x 10 minutes each, then performed seated exercises in the form of; long arc quads, heel toe raises, marches, ball squeezes, clam shells, resisted knee flexion all x 15 with 2# weights and red thera band. Patient ambulated 175 feet back to her room where she was left in her chair with alarm and call light. A. Patient was able to perform all exercises with less fatigue, She was able to ambulate with CGA. She would continue to benefit from skilled therapy to increase strength and mobility. P. Continue POC.
[2017-10-30] MEDS: LATANOPROST 0.005% 2.5 ML EYE DROPS EACH EYE SCH (20:14)
[2017-10-30] MEDS: IBUPROFEN 400 MG TABLET PO PRN (20:14)
[2017-10-30] MEDS: Mirtazapine Tab 15 MG TAB PO SCH (20:15)
[2017-10-31] MEDS: PSYLLIUM SEED 1 EACH PACKET PO SCH (08:47)
[2017-10-31] MEDS: Apixaban Tab 2.5 MG TABLET PO SCH (08:47)
[2017-10-31] MEDS: Calcium/Vit D 600mg/400u Tab 1 TAB TABLET PO SCH (08:47)
[2017-10-31] MEDS: Sotalol Tab 80 MG TAB PO SCH (08:47)
[2017-10-31] MEDS: AmLODIPine Tab 5 MG TABLET PO SCH (08:48)
[2017-10-31] MEDS: ASPIRIN EC 81 MG TABLET PO SCH (08:48)
[2017-10-31] MEDS: Non-Formulary Drug (Cyclosporine [Restasis] 1 DRP) OP SCH (08:49)
--- NOTE | 2017-10-31 08:56 | DCSUMMARY ---
Hospitalization Summary Admit Date: 10/27/2017 Discharge Date: 10/31/17 Hospital Course: Discharge diagnosis 1. 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 2. Coronary artery disease 3. History of paroxysmal A. fib 4. Hypertension 5. Osteoarthritis 6. History of bilateral hip surgeries before Hospital course This is a 77 years old female with medical history significant for history of stable coronary artery disease, hypertension, hypercholesterolemia, paroxysmal atrial fibrillation on aspirin only who came into the hospital because of left leg weakness. Apparently prior to the leg feeling weak the patient felt dizzy and lightheaded. However she noticed some weakness in her left leg which persisted and because of that she came into the ER for evaluation she had an MRI which showed the ischemia in the right periventricular white matter just superior to the thalamus with portion extending to the left internal capsule. She was admitted to the hospital by Dr. Rocha please see his note. He discussed the case with her neurologist in [place] and since the patient has a history of paroxysmal atrial fibrillation, they decided to put her on eliquis. Patient has a history of not tolerating statins so that was not started. While here we continued with rest of her medications. she Started physical therapy and she is making progress. I saw her on the day of discharge and she said she feels much better compared to when she came in. The weakness in her left leg improved. Exam was not remarkable. Weakness seem to be improved. Patient will be discharge home and follow-up with her primary and cardiology as an outpatient. She did have also an MRA of the head and MRA of the neck and they were negative. Discharge instruction Diet regular Activity as started Medications Home Medications Medication Instructions Recorded Confirmed Type Calcium Carbonate/Vitamin D3 1 ea PO PRN 04/18/11 10/27/17 History [Caltrate 600 W-D Tablet] Sotalol HCl [Sotalol] 80 mg ORAL BID tab 04/18/11 10/27/17 History Stamping Ground-3 Fatty Acids [Fish Oil] 500 mg PO DAILY 05/26/11 10/27/17 History Psyllium Husk (with Sugar) 798 gm PO DAILY 05/26/11 10/27/17 History [Metamucil Powder] Cyclosporine [Restasis] 1 drp OP BID #1 drp 12/23/12 10/27/17 History Latanoprost [Xalatan] 1 drp OP DAILY #1 drp 12/23/12 10/27/17 History Cyanocobalamin Inj [Vitamin B-12 1,000 mcg IM MONTHLY #1 vial 02/22/14 10/27/17 History Inj] Cholecalciferol (Vitamin D3) 2,000 unit PO QD #90 cap 01/31/15 10/27/17 History [Vitamin D3] Estradiol Vaginal Cream 0.01% 1 applic VAGINAL ASDIR #1 tube 04/24/17 10/27/17 Rx [Estrace Vaginal Cream 0.01%] amlodipine 5 mg tablet 5 mg PO QDAY #90 tab 08/22/17 10/27/17 Rx mirtazapine 15 mg tablet 15 mg PO QHS 30 Days #30 tab 09/12/17 10/27/17 Rx Apixaban [Eliquis] 2.5 mg PO BID #60 tab 10/31/17 Rx Aspirin EC 81 mg PO DAILY tab 10/31/17 Rx Follow-up with PCP 1-2 weeks, with cardiology 1-2 weeks Condition at discharge was stable for discharge Exam - Vitals Vital Signs: Vital Signs Temperature 97.7 F Temperature Source Temporal Artery Scan Pulse Rate [Pulse Oximeter 57 Right] Pulse Rate 84 Respiratory Rate 20 Blood Pressure [Left Arm] 145/69 Blood Pressure 126/73 Pulse Ox 94 Oxygen Delivery Method Room Air Height 5 ft 5 in Weight 128 lb - General General Appearance: No Acute Distress, Cooperative, Thin - Head Head Exam: Normal Inspection - Eye Eye Exam: POSITIVE: Normal Appearance - ENT ENT Exam: POSITIVE: Normal Exam - Neck Neck Exam: Normal Inspection - Respiratory Respiratory Exam: POSITIVE: Clear to Auscultation - Bilaterally - Cardiovascular Cardiovascular Exam: POSITIVE: RRR - GI/Abdominal GI/Abdominal Exam: POSITIVE: Normal Bowel Sounds, Non Tender, Non Distended, Soft, No Organomegaly - Rectal Rectal Exam: POSITIVE: Deferred - External Exam: POSITIVE: Deferred Exam: POSITIVE: Deferred - Extremities Extremities Exam: POSITIVE: Normal Inspection - Back Back Exam: POSITIVE: Normal Inspection - Neurological Neurological Exam: POSITIVE: Alert, Oriented x 3, CN II-XII Intact, Speech Intact / Clear, Moves All Extremities Equally - Psychiatric Psychiatric Exam: POSITIVE: Normal Affect - Integumentary Integumentary Exam: POSITIVE: Normal Color
--- NOTE | 2017-10-31 11:03 | OT.PROG ---
Progress Note Progress Note: Occupational Therapy: 30 min S: pt stated she was feeling better today and her shoulder did not hurt as bad. O: pt completed functional ambulation with cane and CGA for safety x 186'. pt completed 3# digiflex on L hand power run boat operator x10, each finger x10. pt completed FM exercises of L lateral pinch x10. pt completed FM exercises for coordination with L hand x5 min. pt completed AROM of L UE shoulder flexion x10. pt completed YTB exercises of L IROT/EROT x15, L biceps curls x15, L triceps extension x15. pt was tranfered to PT. A: pt was an active participant in therapy today and continues to improove and benefit from skilled therapy services. P: continue POC
--- NOTE | 2017-10-31 11:49 | OT AM DAY ---
Diagnosis : CVA AM - Occupational Therapy S: The patient reports she would like to take a shower and that she needs to use the restroom. O: Today the patient used the restroom with contact guard assist to turn into the toilet. The therapist encouraged the patient to be as independent as possible today, working on her balance and safety. She was improved with her ability to reach back before sitting. The patient was independent with toilet hygiene. The patient then ambulated to the shower room where she sat on a shower chair. The patient did catch her toe on the shower chair and needed min assist to keep her balance. Once in front of the shower chair, the patient was able to doff all of her clothes while sitting on the chair. She was able to shower self minus her back while sitting on shower chair and using grab bars. This did take the patient increased time. The patient was observed being able to dress self following the shower. She was able to don her socks with increased time and was also able to don her underwear, pants, and shirt. The patient went to the sink and stood x5 minutes to do her hair. The patient spent 60 minutes on bathroom/shower activities. We then worked on left hand coordination and strengthening exercises including power web x4 minutes on the left side, digi-flex, and tip pinch activities with clothespins. A: The patient has made some progress. She reports that she feels like her legs are stronger as she was completing sit to stands with one trial vs. 4-5 trials before standing. The patient did well in the shower. It is recommended that she have a shower chair and/or grab bars in her shower for safety. P: Continue seeing patient BID during the week and one time per day over the weekend for upper extremity strengthening, ADLs, and overall functional mobility. PATTI
[2017-10-31 15:10] VITALS: BP 135/74; RESP 20; TEMP 97.3; O2SAT 94
--- NOTE | 2017-10-31 15:16 | PT.PROG ---
Progress Note Progress Note: S. Patient stated that she is feeling good this morning, she reports she feels stronger and feels ready to go home. O. Patient ambulated 175 feet to the therapy gym where she used the nu-step x 15 minutes, the bicycle x 15 minutes, then performed seated exercises in the form of; long arc quads, heel toe raises, marches, ball squeezes, clam shells, resisted knee flexion, all x 15 bilaterally with 2# and red thera band. Patient performed standing balance activities x 3 minutes, and box step ups x 20 with # 2 box. Patient ambulated 175 feet back to her room where she was left in her chair with alarm and call light. A. Patient tolerated therapy fair, she continues to have some weakness however has made gains with mobility and endurance. Patient would continue to benefit from Outpatient therapy at this time. P. Continue POC.
--- NOTE | 2017-10-31 16:09 | OT.PROG ---
Progress Note Progress Note: S: Pt. reports that she has some back pain, but overall doing well. Pt. is looking forward to going home. O: Pt. was seen from 1300 to 1330 for skilled occupational therapy session. Pt. completed toileting task independently for transfer, hygiene, and pants management. Moist heat was applied to back area upon pt.s request while she completed the fine motor tasks by finding small items in rice X 5 min. and hand strengthening for pincer grasp with clothespins 2 X 10 and red digi flex X 10 bilaterally. Pt. completed L hand/wrist flexion, extension, sup. and pro. 1# X 10 and 3# X 10 on R side. She also completed the following UE strengthening with RTB: shoulder extension, shoulder abduction, shoulder flexion, biceps curls , scapular squeezes, and horizontal abduction 2 X 10 bilaterally. Following occupational therapy session, pt. transitioned to physical therapy. A: Pt. tolerated UE exercises fair with more UE weakness on L side. Pt. may benefit from outpatient therapy to address weakness related to functional use. P: Continue POC until d/c. Gila Biswas, MOTR/L
--- NOTE | 2017-11-03 09:45 | PT PM DAY ---
Diagnosis : CVA PM - Physical Therapy S: The patient is doing very well this afternoon. She states she should be going home shortly after therapy. The patient plans on attending outpatient therapy in [place] after her discharge. O: Treatment today consisted of instruction in bilateral lower extremity strengthening exercises in a seated position with two pound weights including alternating marching, alternating long arc quads, ball squeezes, resisted hip abduction, resisted hamstring curls, heel/toe raises, sit to stands x10 while holding a ball, ambulating over small hurdles with cane in the right hand and hand hold assist x1 on the left, side stepping on a line x25 feet in each direction x3 with hand hold assist x2, and balance grid in all directions with hand hold assist x2. The patient received an application of moist heat pack x20 minutes including set up to her back while she was performing her seated lower extremity exercises. Following our exercises, the patient did receive soft tissue mobilization to her back as she is struggling with back pain and also Kinesio tape on her back for pain modulation. The patient ambulated back up to her room with her cane and stand by assist x1 for safety and was left in chair with alarm set and call light within reach. A: The patient is doing very well. She does need verbal cues at times to picker her left foot with more challenging activities such as the AirX and hurdles, but overall is safe with her ambulation and doing better with her transfers. P: Patient will be discharged from the hospital. PATTI
== END 2017-10-31 16:16 | disposition home or self-care (01) | DRG 66 ==
LOC: ER 15:53 → MED/SURG 17:32
PROVIDERS: ADMIT Family Medicine; ATTEND Family Medicine